=== PATIENT | female | born 1990 | race Two or more races ===

== ENCOUNTER 2023-11-02 07:36 | Emergency (ER) | payer BC, MEDICAID, OTHER ==
[~2023-11-02] VITALS: Ht 165.1 cm; Wt 89.1 kg
[2023-11-02 07:45] VITALS: BP 128/82; PULSE 71; RESP 16; TEMP 97.8; O2SAT 99
[2023-11-02] MEDS ORDERED: FLUORESCEIN SOD OPTH TEST STRIP OP ONE (08:15)
[2023-11-02] MEDS ORDERED: TETRACAINE HCL 0.5% OPTH(EYE) SOLN 4ML RIGHTEYE ONE (08:15)
[2023-11-02] MEDS ORDERED: TOB03OS OP (08:42)
== END 2023-11-02 08:59 | disposition home or self-care (01) ==
LOC: ER 07:36
DX: S05.01XA Injury of conjunctiva and corneal abrasion without foreign body, right eye, initial encounter (principal); W22.8XXA Striking against or struck by other objects, initial encounter; Y93.89 Activity, other specified; Y92.89 Other specified places as the place of occurrence of the external cause; Y99.8 Other external cause status